=== PATIENT | female | born 1955 | race Two or more races ===

== ENCOUNTER 2020-11-04 05:03 | Emergency (ER) | payer OTHER ==
[~2020-11-04] VITALS: Ht 154.9 cm; Wt 95.7 kg
[2020-11-04 06:13] LABS: Basophils # (auto) 0 10 ^3/uL (0-0.2); Basophils % (auto) 0.7 % (0.0-2.0); Eosinophils # (auto) 0.1 10 ^3/uL (0-0.8); Eosinophils % (auto) 2.6 % (0.0-7.0); Hematocrit 40.7 % (36.0-46.0); Lymphocytes # (auto) 1.2 10 ^3/uL (0.4-5.4); Lymphocytes % (auto) 21.7 % (10.0-50.0); Mean Corpuscular Hemoglobin 31.8 pg (28.0-32.0); Mean Corpuscular Hgb Conc. 34.4 g/dL (32.0-36.0); Mean Corpuscular Volume 92.4 fL (80.0-100.0); Monocytes # (auto) 0.6 10 ^3/uL (0-1.3); Monocytes % (auto) 10.6 % (0.0-12.0); Neutrophils # (auto) 3.7 10 ^3/uL (1.6-8.6); Neutrophils % (auto) 64.4 % (37.0-80.0); Nucleated Red Blood Cells % 0.1 %; Platelet Count (auto) 198 10^3/uL (140-450); Red Blood Cells 4.41 10^6/uL (4.0-5.20); Red Cell Distribution Width 13.7 % (11.8-14.3); White Blood Cell 5.7 10^3/uL (4.4-10.8)
[2020-11-04 06:29] LABS: Albumin 3.2 g/dL (3.4-5.0); BUN/Creatinine Ratio 19.5; Calcium 8.2 mg/dL (8.5-10.1); Potassium 3.7 mmol/L (3.5-5.1)
[2020-11-04 06:33] LABS: Bilirubin, Total 0.7 mg/dL (0.2-1.0); Total Protein 6.9 g/dL (6.4-8.2)
[2020-11-04] MEDS ORDERED: SODIUM CHLORIDE 0.9% 1,000 ML IV ONE (07:00)
[2020-11-04] MEDS ORDERED: ALUM & MAG HYDROX-SIMETH LIQ(MAALOX) 30 ML PO ONE (07:00)
[2020-11-04] MEDS ORDERED: ONDANSETRON HCL 4 MG/2 ML VIAL IV ONE (07:00)
[2020-11-04] MEDS ORDERED: FAMOTIDINE 20 MG TAB PO ONE (07:00)
[2020-11-04] MEDS ORDERED: DONNATAL 5ml ORAL Elix (BELLADONNA ALK-PHENOBARB) PO ONE (07:00)
[2020-11-04 07:32] LABS: Magnesium 2.3 mg/dL (1.6-2.6)
[2020-11-04] MEDS: MORPHINE SULFATE 4 MG/ML SYR/VIAL IV ONE ×2 (07:57→08:05)
[2020-11-04 09:03] LABS: Urine Bacteria NONE SEEN /hpf (None Seen); Urine Blood Negative /uL (Negative); Urine Specific Gravity 1.009 (1.001-1.035); Urine WBC 15 /hpf (0 - 5)
[2020-11-04] MEDS ORDERED: metroNIDAZOLE 500 MG TAB PO ONE (09:30)
[2020-11-04] MEDS ORDERED: cefTRIAXone 1GM/50ML D5W 50 ML IV ONE (09:30)
[2020-11-04 10:07] VITALS: BP 147/35
== END 2020-11-04 10:28 | disposition home or self-care (01) ==
LOC: ER 05:03
DX: K57.92 Diverticulitis of intestine, part unspecified, without perforation or abscess without bleeding (principal); R07.9 Chest pain, unspecified; T40.0X5A Adverse effect of opium, initial encounter; N39.0 Urinary tract infection, site not specified; E03.9 Hypothyroidism, unspecified; M48.061 Spinal stenosis, lumbar region without neurogenic claudication; K59.03 Drug induced constipation; Z90.710 Acquired absence of both cervix and uterus; Y92.9 Unspecified place or not applicable
CPT/HCPCS: 36415; 71046; 74176; 80053; 81001; 83690; 83735; 84443; 85025; 93005; 96361; 96365; 96375; 99285; J0696; J2270; J2405; J7030

== ENCOUNTER 2020-11-09 19:26 | Inpatient (IN) | payer OTHER ==
[~2020-11-09] VITALS: Ht 154.9 cm; Wt 93.2 kg
[2020-11-09] MEDS ORDERED: HYDROmorphone HCL 2 MG/ML VL IV ONE (22:45)
[2020-11-09] MEDS ORDERED: ONDANSETRON HCL 4 MG/2 ML VIAL IV ONE (22:45)
[2020-11-09 23:27] LABS: Basophils # (auto) 0.1 10 ^3/uL (0-0.2); Basophils % (auto) 0.6 % (0.0-2.0); Eosinophils # (auto) 0.1 10 ^3/uL (0-0.8); Eosinophils % (auto) 0.8 % (0.0-7.0); Hematocrit 44.9 % (36.0-46.0); Hemoglobin 14.9 g/dL (12.2-16.2); Lymphocytes # (auto) 0.8 10 ^3/uL (0.4-5.4); Lymphocytes % (auto) 6.6 % (10.0-50.0); Mean Corpuscular Hemoglobin 30.5 pg (28.0-32.0); Mean Corpuscular Hgb Conc. 33.2 g/dL (32.0-36.0); Mean Corpuscular Volume 91.8 fL (80.0-100.0); Monocytes # (auto) 0.9 10 ^3/uL (0-1.3); Monocytes % (auto) 7.5 % (0.0-12.0); Neutrophils # (auto) 9.9 10 ^3/uL (1.6-8.6); Neutrophils % (auto) 84.5 % (37.0-80.0); Nucleated Red Blood Cells % 0.1 %; Red Blood Cells 4.89 10^6/uL (4.0-5.20); Red Cell Distribution Width 13.6 % (11.8-14.3); White Blood Cell 11.7 10^3/uL (4.4-10.8)
[2020-11-09 23:44] LABS: Magnesium 2.3 mg/dL (1.6-2.6)
[2020-11-09 23:47] LABS: Alanine Aminotransferase 48 U/L (13-56); Albumin 3.9 g/dL (3.4-5.0); Anion Gap 13 (5-15); Aspartate Aminotransferase 39 U/L (15-37); BUN/Creatinine Ratio 9.7; Blood Urea Nitrogen 25 mg/dL (7-18); Calcium 9.3 mg/dL (8.5-10.1); Carbon Dioxide 20 mmol/L (21-32); Chloride 103 mmol/L (98-107); GFR African American 24 mL/min; GFR Non-African American 20 mL/min; Glucose 115 mg/dL (74-106); Potassium 3.4 mmol/L (3.5-5.1); Sodium 136 mmol/L (136-145)
[2020-11-09 23:52] LABS: Alkaline Phosphatase 88 U/L (45-117); Bilirubin, Total 0.7 mg/dL (0.2-1.0); Total Protein 7.9 g/dL (6.4-8.2)
[2020-11-10] MEDS ORDERED: HYDROmorphone HCL 2 MG/ML VL IV ONE (02:30)
[2020-11-10] MEDS ORDERED: metroNIDAZOLE 500MG/100ML 100 ML IV ONE (04:15)
[2020-11-10] MEDS ORDERED: PIPERACILLIN-TAZOB 3.375GM 100 ML IV ONE (04:15)
[2020-11-10 04:23] LABS: Urine Bacteria NONE SEEN /hpf (None Seen); Urine Blood Negative /uL (Negative); Urine Mucus FEW (None Seen); Urine Specific Gravity 1.012 (1.001-1.035); Urine WBC 8 /hpf (0 - 5)
[2020-11-10] MEDS ORDERED: SODIUM CHLORIDE 0.9% 1,000 ML IV ONE (06:15)
[2020-11-10] MEDS ORDERED: ONDANSETRON HCL 4 MG/2 ML VIAL IV PRN (06:30)
[2020-11-10 08:25] LABS: Basophils # (auto) 0.1 10 ^3/uL (0-0.2); Basophils % (auto) 0.7 % (0.0-2.0); Eosinophils # (auto) 0 10 ^3/uL (0-0.8); Eosinophils % (auto) 0.2 % (0.0-7.0); Hematocrit 40.6 % (36.0-46.0); Hemoglobin 13.8 g/dL (12.2-16.2); Lymphocytes # (auto) 0.4 10 ^3/uL (0.4-5.4); Lymphocytes % (auto) 4.6 % (10.0-50.0); Mean Corpuscular Hemoglobin 30.8 pg (28.0-32.0); Mean Corpuscular Hgb Conc. 34.1 g/dL (32.0-36.0); Mean Corpuscular Volume 90.4 fL (80.0-100.0); Monocytes # (auto) 0.8 10 ^3/uL (0-1.3); Neutrophils # (auto) 8.3 10 ^3/uL (1.6-8.6); Neutrophils % (auto) 86.5 % (37.0-80.0); Red Blood Cells 4.49 10^6/uL (4.0-5.20); Red Cell Distribution Width 13.8 % (11.8-14.3); White Blood Cell 9.6 10^3/uL (4.4-10.8)
[2020-11-10 08:50] LABS: INR 1.04 (0.9-1.15)
[2020-11-10 08:52] LABS: Calcium 8.6 mg/dL (8.5-10.1); Potassium 3.6 mmol/L (3.5-5.1)
[2020-11-10 08:55] LABS: Albumin 3.5 g/dL (3.4-5.0); BUN/Creatinine Ratio 10.7
[2020-11-10 08:57] LABS: Bilirubin, Total 0.8 mg/dL (0.2-1.0); Total Protein 7.3 g/dL (6.4-8.2)
[2020-11-10] MEDS: CIPROFLOXACIN 400MG/200ML 200 ML IV SCH ×2 (10:00→23:46)
[2020-11-10] MEDS: MORPHINE SULFATE INJECTION 2 MG/ML SYRG IV PRN ×2 (12:09→21:28)
[2020-11-10 13:00] VITALS: BP 141/58
[2020-11-10] MEDS: metroNIDAZOLE 500MG/100ML 100 ML IV SCH ×2 (14:12→22:44)
[2020-11-10 14:30] VITALS: BP 122/51
[2020-11-10] MEDS ORDERED: LACTCAP35 OR (15:00)
[2020-11-10] MEDS ORDERED: FLUT1SPR21 (15:00)
[2020-11-10] MEDS ORDERED: CALC750T OR (15:00)
[2020-11-10] MEDS ORDERED: CETI-83 OR (15:00)
[2020-11-10] MEDS ORDERED: ALBU108A5 IN (15:00)
[2020-11-10] MEDS ORDERED: METH1POW PO (15:00)
[2020-11-10 17:00] VITALS: BP 121/62
[2020-11-10] MEDS ORDERED: ACETAMINOPHEN 325 MG TAB PO PRN ×2 (21:15)
[2020-11-10 22:27] VITALS: BP 145/54
[2020-11-11 05:13] VITALS: BP 121/61
[2020-11-11] MEDS: metroNIDAZOLE 500MG/100ML 100 ML IV SCH ×3 (05:53→21:06)
[2020-11-11 06:54] LABS: Basophils # (auto) 0 10 ^3/uL (0-0.2); Basophils % (auto) 0.1 % (0.0-2.0); Eosinophils # (auto) 0.2 10 ^3/uL (0-0.8); Eosinophils % (auto) 2.3 % (0.0-7.0); Hemoglobin 13.4 g/dL (12.2-16.2); Lymphocytes # (auto) 0.7 10 ^3/uL (0.4-5.4); Lymphocytes % (auto) 8.9 % (10.0-50.0); Mean Corpuscular Hemoglobin 31.4 pg (28.0-32.0); Mean Corpuscular Hgb Conc. 34.3 g/dL (32.0-36.0); Mean Corpuscular Volume 91.4 fL (80.0-100.0); Monocytes # (auto) 0.8 10 ^3/uL (0-1.3); Monocytes % (auto) 10.2 % (0.0-12.0); Neutrophils # (auto) 6.2 10 ^3/uL (1.6-8.6); Neutrophils % (auto) 78.5 % (37.0-80.0); Red Blood Cells 4.27 10^6/uL (4.0-5.20); Red Cell Distribution Width 13.6 % (11.8-14.3); White Blood Cell 7.9 10^3/uL (4.4-10.8)
[2020-11-11 07:00] LABS: Albumin 3.1 g/dL (3.4-5.0); Calcium 8.6 mg/dL (8.5-10.1); Potassium 3.3 mmol/L (3.5-5.1)
[2020-11-11 07:05] LABS: BUN/Creatinine Ratio 11.9; Bilirubin, Total 0.7 mg/dL (0.2-1.0); Total Protein 6.5 g/dL (6.4-8.2)
[2020-11-11 07:57] VITALS: BP 100/47
[2020-11-11] MEDS: CIPROFLOXACIN 400MG/200ML 200 ML IV SCH ×2 (09:45→22:33)
[2020-11-11 12:00] VITALS: BP 120/60
[2020-11-11] MEDS ORDERED: PANT40TA2 PO (12:21)
[2020-11-11] MEDS: ONDANSETRON HCL 4 MG/2 ML VIAL IV PRN (15:20)
[2020-11-11 16:00] VITALS: BP 138/75
[2020-11-11] MEDS ORDERED: HYDROcodone-ACET 10/325MG TAB PO PRN (18:00)
[2020-11-11] MEDS ORDERED: HYOSCYAMINE SULF 0.125 MG ODT TAB PO PRN (18:00)
[2020-11-11 22:14] VITALS: BP 123/63
[2020-11-12] MEDS: MORPHINE SULFATE INJECTION 2 MG/ML SYRG IV PRN ×2 (03:02→16:05)
[2020-11-12 05:05] VITALS: BP 114/55
[2020-11-12] MEDS: metroNIDAZOLE 500MG/100ML 100 ML IV SCH ×3 (06:26→21:35)
[2020-11-12] MEDS: ONDANSETRON HCL 4 MG/2 ML VIAL IV PRN ×2 (07:08→16:40)
[2020-11-12 08:00] VITALS: BP 112/58
[2020-11-12] MEDS: CIPROFLOXACIN 400MG/200ML 200 ML IV SCH ×2 (09:57→22:52)
[2020-11-12 11:21] LABS: BUN/Creatinine Ratio 9.9; Calcium 8.7 mg/dL (8.5-10.1); Potassium 3.4 mmol/L (3.5-5.1)
[2020-11-12] MEDS ORDERED: MIDAZOLAM HCL 2MG/2ML 2ml VIAL (1mg/ml) ONE (11:51)
[2020-11-12] MEDS ORDERED: fentaNYL CITRATE 100 MCG/2 ML VL ONE (11:51)
[2020-11-12] MEDS ORDERED: BUPIVACAINE 0.25% INJ 50ML VIAL ONE (11:55)
[2020-11-12 12:00] VITALS: BP 142/78
[2020-11-12] MEDS ORDERED: ROCURONIUM 10MG/ML 10ML VIAL IV ONE (12:17)
[2020-11-12] MEDS ORDERED: LIDOCAINE 2% (LOCAL ANESTH.) PF 5ml SDV ONE (12:21)
[2020-11-12] MEDS ORDERED: PROPOFOL 10 MG/ML 20 ML IV ONE (12:21)
[2020-11-12] MEDS ORDERED: ONDANSETRON HCL 4 MG/2 ML VIAL ONE (13:02)
[2020-11-12] MEDS ORDERED: NEOSTIGMINE 1 MG/ML INJ (10mg/10ML VIAL) ONE (13:17)
[2020-11-12] MEDS ORDERED: GLYCOPYRROLATE 0.2 MG/ML 1ML VIAL ONE (13:17)
[2020-11-12] MEDS ORDERED: ONDANSETRON HCL 4 MG/2 ML VIAL IV PRN (14:15)
[2020-11-12] MEDS ORDERED: HYDROmorphone HCL 2 MG/ML VL IV PRN (14:15)
[2020-11-12] MEDS ORDERED: HYDROmorphone HCL 2 MG/ML VL ONE (14:18)
[2020-11-12] MEDS: HYDROmorphone HCL 2 MG/ML VL IV PRN ×2 (14:22→14:32)
[2020-11-12 14:31] LABS: Basophils # (auto) 0 10 ^3/uL (0-0.2); Basophils % (auto) 0.6 % (0.0-2.0); Eosinophils # (auto) 0.1 10 ^3/uL (0-0.8); Eosinophils % (auto) 1.5 % (0.0-7.0); Hematocrit 40.4 % (36.0-46.0); Hemoglobin 13.8 g/dL (12.2-16.2); Lymphocytes # (auto) 0.7 10 ^3/uL (0.4-5.4); Lymphocytes % (auto) 9.7 % (10.0-50.0); Mean Corpuscular Hemoglobin 31.4 pg (28.0-32.0); Mean Corpuscular Hgb Conc. 34.3 g/dL (32.0-36.0); Mean Corpuscular Volume 91.7 fL (80.0-100.0); Monocytes # (auto) 0.6 10 ^3/uL (0-1.3); Monocytes % (auto) 9.1 % (0.0-12.0); Neutrophils # (auto) 5.3 10 ^3/uL (1.6-8.6); Neutrophils % (auto) 79.1 % (37.0-80.0); Nucleated Red Blood Cells % 0.1 %; Red Cell Distribution Width 13.4 % (11.8-14.3); White Blood Cell 6.7 10^3/uL (4.4-10.8)
[2020-11-12 16:10] VITALS: BP 120/59
[2020-11-12 22:00] VITALS: BP 146/38
[2020-11-13] MEDS: MORPHINE SULFATE INJECTION 2 MG/ML SYRG IV PRN (03:52)
[2020-11-13 05:29] VITALS: BP 132/67
[2020-11-13] MEDS: metroNIDAZOLE 500MG/100ML 100 ML IV SCH (06:22)
[2020-11-13] MEDS: CIPROFLOXACIN 400MG/200ML 200 ML IV SCH (09:10)
[2020-11-13] MEDS ORDERED: HYDR-4902 PO (09:19)
[2020-11-13 09:23] VITALS: BP 114/53
[2020-11-13] MEDS ORDERED: ONDANSETRON HCL 4 MG/2 ML VIAL IV PRN (09:30)
[2020-11-13 09:49] LABS: BUN/Creatinine Ratio 11.3; Calcium 8.3 mg/dL (8.5-10.1); Potassium 3.2 mmol/L (3.5-5.1)
[2020-11-13 12:14] VITALS: BP 139/82
[2020-11-13 12:35] VITALS: BP 97/64
[2020-11-13] MEDS ORDERED: POTASSIUM CHL 20 Meq TABLET PO ONE (13:45)
[2020-11-13 14:20] VITALS: BP 139/82
== END 2020-11-13 15:58 | disposition home or self-care (01) | DRG 418 ==
LOC: ER 19:26 → OVERFLOW 19:27 → OBSVTOIN 19:27 → UNDOADMOB 19:28 → OVERFLOW 19:28 → INTOOBSV 11-10 06:07 → OVERFLOW 11-10 06:07 → UNDOADMOB 11-10 06:07 → OVERFLOW 11-10 08:54 → CENTRAL 11-10 10:58 → OVERFLOW 11-10 10:58 → CENTRAL 11-10 10:58 → INTOOBSV 11-12 08:53 → OBSVTOIN 11-12 08:53 → UNDODISIN 11-13 15:58
PROVIDERS: ADMIT Internal Medicine; ATTEND Internal Medicine
PROC: 3E013GC Introduction of Other Therapeutic Substance into Subcutaneous Tissue, Percutaneous Approach (ICD-10-PCS; 2020-11-12)
PROC: 0FT44ZZ Resection of Gallbladder, Percutaneous Endoscopic Approach (ICD-10-PCS; principal; 2020-11-12 12:17)
DX: K80.20 Calculus of gallbladder without cholecystitis without obstruction (principal); N17.9 Acute kidney failure, unspecified; K29.70 Gastritis, unspecified, without bleeding; J45.909 Unspecified asthma, uncomplicated; K21.9 Gastro-esophageal reflux disease without esophagitis; E66.01 Morbid (severe) obesity due to excess calories; I25.10 Atherosclerotic heart disease of native coronary artery without angina pectoris; N18.9 Chronic kidney disease, unspecified; Z20.822 Contact with and (suspected) exposure to COVID-19; Z90.710 Acquired absence of both cervix and uterus; Z88.5 Allergy status to narcotic agent; Z88.8 Allergy status to other drugs, medicaments and biological substances; Z81.8 Family history of other mental and behavioral disorders; Z84.89 Family history of other specified conditions; Z88.1 Allergy status to other antibiotic agents; Z68.38 Body mass index [BMI] 38.0-38.9, adult
CPT/HCPCS: 36415; 71045; 76705; 78226; 80048; 80053; 81001; 82150; 82247; 83690; 83735; 84484; 85025; 85610; 86850; 86900; 86901; 87426; 93005; 96365; 96366; 96368; 96375; 96376; G0378; J2001; J2250; J2405; J2543; J2704; J3490

== ENCOUNTER 2020-11-29 10:08 | Emergency (ER) | payer OTHER ==
[~2020-11-29] VITALS: Ht 154.9 cm; Wt 91.2 kg
[~2020-11-29 10:08] MED LIST: ALBU108A5 IN; CALC750T OR; CETI-83 OR; FLUT1SPR21; HYDR-4902 PO; LACTCAP35 OR; METH1POW PO; PANT40TA2 PO
[2020-11-29 10:58] LABS: Basophils # (auto) 0.1 10 ^3/uL (0-0.2); Basophils % (auto) 1.3 % (0.0-2.0); Eosinophils # (auto) 0.4 10 ^3/uL (0-0.8); Eosinophils % (auto) 8.2 % (0.0-7.0); Hematocrit 40.3 % (36.0-46.0); Hemoglobin 14.1 g/dL (12.2-16.2); Lymphocytes # (auto) 1.2 10 ^3/uL (0.4-5.4); Mean Corpuscular Hemoglobin 31.5 pg (28.0-32.0); Mean Corpuscular Volume 90.2 fL (80.0-100.0); Monocytes # (auto) 0.4 10 ^3/uL (0-1.3); Monocytes % (auto) 10.1 % (0.0-12.0); Neutrophils # (auto) 2.3 10 ^3/uL (1.6-8.6); Neutrophils % (auto) 53.4 % (37.0-80.0); Nucleated Red Blood Cells % 0.1 %; Platelet Count (auto) 248 10^3/uL (140-450); Red Blood Cells 4.47 10^6/uL (4.0-5.20); Red Cell Distribution Width 13.7 % (11.8-14.3); White Blood Cell 4.3 10^3/uL (4.4-10.8)
[2020-11-29 11:17] LABS: Albumin 3.4 g/dL (3.4-5.0); Anion Gap 7 (5-15); Blood Urea Nitrogen 8 mg/dL (7-18); Carbon Dioxide 26 mmol/L (21-32); Chloride 108 mmol/L (98-107); Glucose 98 mg/dL (74-106); Lipase 155 U/L (73-393); Sodium 141 mmol/L (136-145)
[2020-11-29 11:24] LABS: Alanine Aminotransferase 38 U/L (13-56); Alkaline Phosphatase 87 U/L (45-117); Aspartate Aminotransferase 34 U/L (15-37); Bilirubin, Total 0.6 mg/dL (0.2-1.0); GFR African American 92 mL/min; GFR Non-African American 76 mL/min; Total Protein 7.5 g/dL (6.4-8.2)
[2020-11-29 14:57] VITALS: BP 127/40
== END 2020-11-29 16:20 | disposition home or self-care (01) ==
LOC: ER 10:08
DX: S36.12 Injury of gallbladder (principal); J45.909 Unspecified asthma, uncomplicated; Z90.710 Acquired absence of both cervix and uterus; X58.XXXA Exposure to other specified factors, initial encounter; Y93.89 Activity, other specified; Y92.89 Other specified places as the place of occurrence of the external cause; Y99.8 Other external cause status
CPT/HCPCS: 36415; 71045; 74176; 80053; 83690; 84484; 85025

== ENCOUNTER 2023-10-08 13:21 | Emergency (ER) | payer OTHER ==
[~2023-10-08] VITALS: Ht 154.9 cm; Wt 86.3 kg
[2023-10-08 14:35] VITALS: PULSE 87; RESP 20; O2SAT 100
[2023-10-08] MEDS: KETOROLAC TROMETH 30 MG/ML 1ML VIAL IV ONE (14:56)
[2023-10-08] MEDS: ONDANSETRON HCL 4 MG/2 ML VIAL IV ONE ×2 (16:12→19:07)
[2023-10-08] MEDS: MORPHINE SULFATE 4 MG/ML SYR/VIAL IV ONE (16:18)
[2023-10-08 16:35] LABS: Basophils # (auto) 0 10 ^3/uL (0-0.2); Basophils % (auto) 0.1 % (0.0-2.0); Eosinophils # (auto) 0 10 ^3/uL (0-0.8); Eosinophils % (auto) 0.3 % (0.0-7.0); Hematocrit 39.5 % (36.0-46.0); Hemoglobin 13.1 g/dL (12.2-16.2); Lymphocytes # (auto) 0.8 10 ^3/uL (0.4-5.4); Lymphocytes % (auto) 5.7 % (10.0-50.0); Mean Corpuscular Hemoglobin 30.5 pg (28.0-32.0); Mean Corpuscular Hgb Conc. 33.2 g/dL (32.0-36.0); Monocytes # (auto) 0.9 10 ^3/uL (0-1.3); Monocytes % (auto) 6.2 % (0.0-12.0); Neutrophils # (auto) 12.6 10 ^3/uL (1.6-8.6); Neutrophils % (auto) 87.7 % (37.0-80.0); Red Blood Cells 4.29 10^6/uL (4.0-5.20); Red Cell Distribution Width 13.2 % (11.8-14.3); White Blood Cell 14.3 10^3/uL (4.4-10.8)
[2023-10-08 16:43] LABS: Chloride 106 mmol/L (98-107); Potassium 3.8 mmol/L (3.5-5.1); Sodium 138 mmol/L (136-145)
[2023-10-08 16:44] LABS: Anion Gap 10 (5-15); Carbon Dioxide 22 mmol/L (20-30)
[2023-10-08 16:49] LABS: Glucose 111 mg/dL (74-106)
[2023-10-08 16:50] LABS: BUN/Creatinine Ratio 11.5 (10.0-20.0); Blood Urea Nitrogen 11 mg/dL (9-23)
[2023-10-08] MEDS: TETANUS-DIPTH-ACEL PERTUSSIS 0.5ML SYR Tdap IM ONE (16:52)
[2023-10-08 17:00] LABS: INR 1.04 (0.9-1.15); Prothrombin Time 10.9 sec (9.3-11.8)
[2023-10-08 17:54] LABS: Urine Bacteria FEW /hpf (None Seen); Urine Blood Negative /uL (Negative); Urine Clarity HAZY (Clear); Urine Color Yellow (Yellow); Urine Hyaline Cast FEW /lpf (0 - 2); Urine Mucus MODERATE (None Seen); Urine Protein, UAD 1+ (Negative); Urine Specific Gravity 1.023 (1.001-1.035); Urine WBC 40 /hpf (0 - 5); Urine pH 7.5 (5.0-8.0)
[2023-10-08] MEDS: HYDROmorphone HCL 2 MG/ML VL/or syr IV ONE (19:12)
[2023-10-08 19:59] VITALS: BP 132/49; PULSE 108; RESP 18; TEMP 99.4; O2SAT 95
== END 2023-10-08 16:28 | disposition short-term general hospital (02) ==
LOC: ER 13:21 → EDBD 13:21 → ER 16:28
DX: S82.51XA Displaced fracture of medial malleolus of right tibia, initial encounter for closed fracture (principal); S52.592A Other fractures of lower end of left radius, initial encounter for closed fracture; S52.692A Other fracture of lower end of left ulna, initial encounter for closed fracture; J45.909 Unspecified asthma, uncomplicated; Z90.710 Acquired absence of both cervix and uterus; Z79.899 Other long term (current) drug therapy; V43.52XA Car driver injured in collision with other type car in traffic accident, initial encounter; Y93.I9 Activity, other involving external motion; Y92.89 Other specified places as the place of occurrence of the external cause; Y99.8 Other external cause status
CPT/HCPCS: 29125; 29515; 36415; 51702; 71250; 73090; 73120; 73560; 73590; 73610; 73630; 74176; 80048; 81001; 85025; 85610; 87086; 90471; 90715; 96374; 96375; 96376; 99285; J1170; J1885; J2270; J2405